=== PATIENT | female | born 1975 | race Caucasian/White ===

== ENCOUNTER 2020-06-22 16:01 | Outpatient (CLI) | payer OTHER, SELFPAY ==
--- NOTE | ~2020-06-22 | US_ITS ---
EXAMINATION: US soft tissue head and neck DATE: 06/22/2020 16:38 INDICATION: Mass inferior to the right mastoid process. TECHNIQUE: Multiple grayscale and Doppler ultrasound images of the right face at the region of concer n inferior to the right mastoid were obtained. COMPARISON: 12/04/2012 FINDINGS: Within the deep aspect of the right parotid gland near the site of the previously biopsied nodule is a larger 2.0 x 1.7 x 1.5 cm anechoic cystic lesion with smooth well-defined margins and posterior aco ustic enhancement. No evident solid soft tissue component or internal vascularity on color Doppler. V ascular flow is seen within a smaller hypoechoic solid nodule measuring 7 x 6 x 7 mm located in the m ore superficial left mastoid possibly representing a reactive lymph node although neoplasm cannot be excluded. IMPRESSION: 1. 2.0 cm simple appearing cystic lesion in the right parotid gland without evident vascular solid so ft tissue component suggesting either cephalocele or abscess in the appropriate clinical setting. 2. . Smaller and more superficial 7 mm solid right parotid nodule with vascular flow on color Doppler which could represent a reactive lymph node versus primary parotid neoplasm which could be either be nign or malignant. Correlate clinically and could consider either further evaluation with neck CT wit h contrast or ultrasound guided biopsy as clinically indicated. Reviewed, dictated and finalized at location H. OGIST IMPRESSION: 1. 2.0 cm simple appearing cystic lesion in the right parotid gland without verona dent vascular solid soft tissue component suggesting either cephalocele or absc ess in the appropriate clinical setting. 2. . Smaller and more superficial 7 mm solid right parotid nodule with vascular flow on color Doppler which could represent a reactive lymph node versus prima ry parotid neoplasm which could be either benign or malignant. Correlate clinic ally and could consider either further evaluation with neck CT with contrast or ultrasound guided biopsy as clinically indicated.
== END 2020-06-22 16:02 | disposition home or self-care (01) ==
PROVIDERS: PCP Internal Medicine; Visit Provider Internal Medicine
DX: R93.0 Abnormal findings on diagnostic imaging of skull and head, not elsewhere classified (principal)
CPT/HCPCS: 76536

== ENCOUNTER 2020-07-09 08:34 | Outpatient (CLI) | payer OTHER, SELFPAY ==
--- NOTE | ~2020-07-09 | CT_ITS ---
EXAMINATION: CT soft tissue neck w con DATE: 07/09/2020 09:39 INDICATION: Other diseases of salivary glands. Right parotid mass. TECHNIQUE: Computed tomography (CT) of the neck was performed with 75 mL Omnipaque-350 intravenous co ntrast. Automated exposure control and iterative reconstruction technique were employed. The dose-saravanan gth product was 569.63 mGy-cm. COMPARISON: Ultrasound 06/22/2020, 12/06/12 FINDINGS: There is a 1.9 x 1.4 cm mass in superficial right parotid gland. On 12/06/12, ultrasound-guid ed biopsy of a 1.4 cm mass in right parotid gland was nondiagnostic. There is a 1.3 x 1.1 cm mass in superficial left parotid gland. There is plaque in proximal left internal carotid artery with less t edmond 50% stenosis relative to normal distal artery lumen diameter. There are calcifications in the pal atine tonsils. There are no pathologically enlarged lymph nodes. There is mild cervical spondylosis. IMPRESSION: 1. Bilateral parotid masses with increase in size of the right parotid mass from 12/06/12. The differen tial diagnosis includes benign mixed tumor, Warthin tumor, and less likely primary malignancy or nae l metastatic disease. Consider ultrasound-guided fine-needle aspiration. Reviewed, dictated and finalized at location B. RNATIONAL RECRUITER IMPRESSION: 1. Bilateral parotid masses with increase in size of the right parotid mass fro m 12/06/12. The differential diagnosis includes benign mixed tumor, Warthin tumor , and less likely primary malignancy or daniel metastatic disease. Consider ultr asound-guided fine-needle aspiration.
[2020-07-09 09:32] LABS: Estimated Glomerular Filt Rate > 60
== END 2020-07-09 08:35 | disposition home or self-care (01) ==
PROVIDERS: PCP Internal Medicine; Visit Provider Otolaryngology
DX: H60.93 Unspecified otitis externa, bilateral (principal); K11.20 Sialoadenitis, unspecified; K11.8 Other diseases of salivary glands
CPT/HCPCS: 70491; Q9967

== ENCOUNTER 2020-07-21 13:31 | Outpatient (CLI) | payer OTHER, SELFPAY ==
--- NOTE | ~2020-07-21 | US_ITS ---
EXAMINATION: 1. US FNA additional 2. US FNA w image guidance DATE: 07/21/2020 14:39 INDICATION: Bilateral parotid masses. TECHNIQUE: The procedure and its benefits, risks, and benefits were discussed with the patient. Risks specifical ly discussed included bleeding, infection, nerve damage. The patient verbalized understanding of the risks and agreed to proceed. The face was prepped and draped in the usual sterile manner. 1% lidocai ne was used for local anesthesia. Five passes were made with a 25G needle into the in left parotid g land lesion. Appropriate needle location was documented with continuous sonographic guidance. Five passes were made with a 25G needle into the in right parotid gland lesion. Appropriate needle l ocation was documented with continuous sonographic guidance. There were no immediate complications. FINDINGS: Grayscale ultrasound images demonstrate needles advanced into a 12 x 9 mm hypoechoic mass in the supe rficial left parotid gland for biopsy. Grayscale images demonstrate needles advanced into a 1.9 x 1.5 x 1.5 cm mixed cystic and solid mass in superficial right parotid gland IMPRESSION: 1. Ultrasound-guided fine needle aspiration of a mass in superficial left parotid gland. 2. Ultrasound-guided fine-needle aspiration of a mass in superficial right parotid gland. Reviewed, dictated and finalized at location A. DIFIER MAINTENANCE WORKER IMPRESSION: 1. Ultrasound-guided fine needle aspiration of a mass in superficial left paro tid gland. 2. Ultrasound-guided fine-needle aspiration of a mass in superficial right paro tid gland.
== END 2020-07-21 13:32 | disposition home or self-care (01) ==
PROVIDERS: PCP Internal Medicine; Visit Provider Otolaryngology
DX: K11.8 Other diseases of salivary glands (principal)
CPT/HCPCS: 10005; 10006; 88173; 88305

== ENCOUNTER 2020-08-18 02:01 | Outpatient (CLI) | payer OTHER, SELFPAY ==
[2020-08-18 18:37] LABS: SARS-CoV-2 RNA PCR Negative
== END 2020-08-18 02:02 | disposition home or self-care (01) ==
LOC: ANHCOVIDDT 02:01
PROVIDERS: PCP Internal Medicine; Visit Provider Otolaryngology
DX: Z01.812 Encounter for preprocedural laboratory examination (principal); Z20.822 Contact with and (suspected) exposure to COVID-19
CPT/HCPCS: 93005; C9803; U0003; U0005

== ENCOUNTER 2020-08-18 13:22 | Outpatient (CLI) | payer OTHER, SELFPAY ==
--- NOTE | 2020-08-18 13:26 | ECG_ITS ---
Measurements Intervals [place] Rate: 79 P: 42 AR: 130 QRS: 31 QRSD: 104 T: 65 QT: 343 QTc: 395 Interpretive Statements SINUS RHYTHM DELAYED PRECORDIAL R/S TRANSITION BORDERLINE ECG Electronically Signed On 08-18-2020 13:56:10 THUMB SEWER by Dontrell Sanchez D.O.
== END 2020-08-18 13:23 | disposition home or self-care (01) ==
LOC: ANHSURGERY 13:26
PROVIDERS: PCP Internal Medicine; Visit Provider Otolaryngology
DX: Z01.818 Encounter for other preprocedural examination (principal); I10 Essential (primary) hypertension; R94.31 Abnormal electrocardiogram [ECG] [EKG]
CPT/HCPCS: 93005

== ENCOUNTER 2020-08-21 00:51 | Day surgery (SDC) | payer OTHER, SELFPAY ==
[2020-08-17 09:59] VITALS: BMI 51.7
--- NOTE | 2020-08-19 13:25 | PM.IMHP ---
H&P: HPI History of Present Illness Date/Time: 08/19/20 13:25 Chief Complaint: Right parotid lesion Narrative: Rachel Lane is a 45 year old female Who presents for planned surgical procedure. She reports no new changes in symptoms or medical history. Review of Systems Constitutional: Constitutional: Denies fatigue, Denies fever(s) and Denies lethargy Eyes: Eyes: Denies blurry vision and Denies change in vision ENT: Reports as per HPI Cardiovascular: Cardiovascular: Denies chest pain Respiratory: Respiratory: Denies cough Endocrine: Endocrine: Denies fatigue Hematologic/Lymphatic: Hematologic/Lymphatic: Denies easy bleeding, Denies easy bruising and Denies lymphadenopathy Allergic/Immunologic: Allergic/Immunologic: Denies seasonal rhinorrhea [facility] Past Medical History Medical History Anxiety Arthritis Depression Headache, migraine Hypertension IBS (irritable bowel syndrome) Obesity, morbid, BMI 40.0-49.9 Postprandial diarrhea Thyroid disorder Tobacco consumption Surgical History Surgical History H/O LEEP H/O: hysterectomy Family History Family History Mother Diabetes mellitus Hypertension COPD (chronic obstructive pulmonary disease) Arthritis Hypothyroidism (acquired) Father Diabetes mellitus Hypertension Grandparent Arthritis COPD (chronic obstructive pulmonary disease) Diabetes mellitus Hypertension Hypothyroidism (acquired) Kidney failure Sibling Heart valve replaced Social History Social History Smoking packs per day: 1 Smoking cigarettes per day: 20.0 Years smoked: 30 Smoking pack-years: 30.00 Smoking status: Current every day smoker Tobacco type: cigarettes Alcohol intake: never Substance use: current Substance use type: marijuana Last use: MARIJUANA GUMMIES TID Spiritual care concerns: No Meds Home Medications and Allergies Home Medications Medication Instructions Recorded Confirmed Type ibuprofen 800 mg tablet 800 mg PO TID 01/13/20 08/17/20 History omeprazole 20 mg capsule,delayed 40 mg PO QPM 01/13/20 08/17/20 History release levothyroxine 100 mcg tablet 100 mcg PO DAILY #90 tablet 07/07/20 08/17/20 Rx cyclobenzaprine 10 mg tablet 10 mg PO TID PRN #30 tablet 07/08/20 08/17/20 Rx methylprednisolone 4 mg tablets in See Rx Instructions PO PER PKG DIR 07/30/20 08/17/20 Rx a dose pack #21 ea atorvastatin 20 mg PO HS 08/17/20 08/17/20 History clindamycin HCl 300 mg capsule 300 mg PO Q8H #12 cap 08/17/20 08/17/20 Rx lisinopril 20 mg PO HS 08/17/20 08/17/20 History olvactbd-kxs-adt C-herb no.124 1 tablet PO QAM 08/17/20 08/17/20 History [Airborne Gummy] nystatin 100,000 unit/mL oral 4 ml PO Q6H #60 ml 08/17/20 08/17/20 Rx suspension Allergies Allergy/AdvReac Type Severity Reaction Status Date / Time egg Allergy Unknown Gastrointestinal Verified 08/17/20 09:30 Upset PENCILLIN Allergy Unknown Anaphylaxis Uncoded 08/17/20 09:29 Exam Const: General: cooperative, healthy appearing, comfortable, well developed and alert HENMT: Head: normal to inspection, normocephalic and atraumatic Ears: hearing grossly normal bilaterally, external ears normal, TM's normal bilaterally and EAC's normal General nose exam: Normal external nose present, Normal nares present, No nasal polyps present, Normal nasal mucous membranes and turbinates present and Normal septum present Face and sinus: normal facial exam Mouth: Yes Normal oral and palatal mucosa present, Yes lip normal, Yes tongue normal, Yes oropharynx normal and Yes moist mucous membranes Teeth and gingiva: dentition normal and gingiva normal Throat: posterior oropharynx normal, tonsils normal and uvula midline Eyes: General: appearance normal, both eyes and all related structures Periorbital: periorbital findi
--- NOTE | 2020-08-20 15:12 | WPDANESEPPF ---
Anes - Initial Pre Proc Eval Procedure: Operation Date: 08/21/20 09:00 Proposed Procedures p Right Parotidectomy with Facial Nerve Dissection - Tomás Manuel MD Date/Time: 08/20/20 15:12 Surgeon: Tomás Manuel MD Pre Op Diagnosis: sialidonitis Patient Data Age: 45 Gender: F Height: 1.54 m Weight: 122.05 kg Allergies Allergy/AdvReac Type Severity Reaction Status Date / Time Penicillins Allergy Severe Anaphylaxis Verified 08/21/20 07:49 egg Allergy Unknown Gastrointestinal Verified 08/17/20 09:30 Upset PENCILLIN Allergy Unknown Anaphylaxis Uncoded 08/17/20 09:29 Home Medications Medication Instructions Recorded Confirmed Type ibuprofen 800 mg tablet 800 mg PO TID 01/13/20 08/17/20 History omeprazole 20 mg capsule,delayed 40 mg PO QPM 01/13/20 08/17/20 History release levothyroxine 100 mcg tablet 100 mcg PO DAILY #90 tablet 07/07/20 08/17/20 Rx cyclobenzaprine 10 mg tablet 10 mg PO TID PRN #30 tablet 07/08/20 08/17/20 Rx methylprednisolone 4 mg tablets in See Rx Instructions PO PER PKG DIR 07/30/20 08/17/20 Rx a dose pack #21 ea atorvastatin 20 mg PO HS 08/17/20 08/17/20 History clindamycin HCl 300 mg capsule 300 mg PO Q8H #12 cap 08/17/20 08/17/20 Rx lisinopril 20 mg PO HS 08/17/20 08/17/20 History aeefjjat-edc-crz C-herb no.124 1 tablet PO QAM 08/17/20 08/17/20 History [Airborne Gummy] nystatin 100,000 unit/mL oral 4 ml PO Q6H #60 ml 08/17/20 08/17/20 Rx suspension Patient hx anesthesia problems: none Family hx anesthesia problems: none PMFSH Past Medical History Medical History Anxiety Arthritis Depression Headache, migraine Hypertension IBS (irritable bowel syndrome) Obesity, morbid, BMI 40.0-49.9 Postprandial diarrhea Thyroid disorder Tobacco consumption Surgical History Surgical History H/O LEEP H/O: hysterectomy Family History Family History Mother Diabetes mellitus Hypertension COPD (chronic obstructive pulmonary disease) Arthritis Hypothyroidism (acquired) Father Diabetes mellitus Hypertension Grandparent Arthritis COPD (chronic obstructive pulmonary disease) Diabetes mellitus Hypertension Hypothyroidism (acquired) Kidney failure Sibling Heart valve replaced Social History Social History Smoking packs per day: 1 Smoking cigarettes per day: 20.0 Years smoked: 30 Smoking pack-years: 30.00 Smoking status: Current every day smoker Tobacco type: cigarettes Alcohol intake: never Substance use: current Substance use type: marijuana Last use: MARIJUANA GUMMIES TID Living arrangements: with family Spiritual care concerns: No Anes - Eval Final PreProcedure Day of Procedure 08/20/20 15:12 Patient weight: morbidly obese Heart: regular rate and rhythm Lungs: clear to auscultation and normal air movement Airway: Mallampati scale class II Neurological: alert and oriented Last oral intake: >/= 8 hours ASA classification: III Emergent: no Anesthetic plan: proceed Anesthesia type and monitoring: general ETT Informed Consent: The patient's anesthetic plan and its attendant risks and benefits were discussed with the patient/family/POA. Questions were solicited and answers provided to the satisfaction of the patient/family/POA.
[2020-08-21] VITALS (12 sets, daily range): BP systolic 110–162; BP diastolic 67–88; PULSE 62–107; RESP 12–20; TEMP 36.1–36.7; O2SAT 92–100
--- NOTE | 2020-08-21 06:57 | WPDHPUPDATE1 ---
History and Physical Update Update Date/Time: 08/21/20 06:57 History and Physical has been reviewed, including an updated exam of the patient. There are NO changes in the patient's condition. Risks, benefits, and alternatives have been discussed and questions answered. Patient agrees to proceed with procedure.
[2020-08-21] MEDS: ACETAMINOPHEN 500 MG TABLET 1000 MG PO (08:30)
[2020-08-21] MEDS: LACTATED RINGERS 1,000 ML 30 ML IV CONT ×2 (08:35→11:33)
--- NOTE | 2020-08-21 08:47 | SUR.PREOP ---
0840-PT STATES SHE HAS FEVER BLISTER ON UPPER LIP-[address] CRNA AWARE AND WILL INFORM DR. CALABRESE.
[2020-08-21] MEDS: CLINDAMYCIN 900 MG/D5W 50 ML 900 MG/50 ML PIGGYBACK 50 MG IVPB (09:53)
[2020-08-21] MEDS: LIDO 1%/EPINEPHRINE 1:100,000 50 ML VIAL INFILTRATE (10:13)
--- NOTE | 2020-08-21 10:41 | SUR.OPER ---
Frozen section sent with liv Cavazos and received in pathology by Bharti
--- NOTE | 2020-08-21 11:43 | SUR.PHASEI ---
1143 - dr. stallings at bedside assessing pt's neuro status
[2020-08-21] MEDS: ONDANSETRON INJ 4 MG/2 ML VIAL IV PUSH (11:55)
--- NOTE | 2020-08-21 12:01 | SUR.PHASEI ---
1208 - dr. Manuel at bedside assessing pt
[2020-08-21] MEDS: fentaNYL CITRATE INJ (*CRX) 100 MCG/2 ML VIAL 25 MCG IV PUSH (12:22)
[2020-08-21] MEDS: diphenhydrAMINE HCl INJ 50 MG/ML VIAL 12.5 MG IV PUSH (13:08)
[2020-08-21] MEDS: oxyCODONE HCL (*CRX) 5 MG TAB IR PO (13:25)
--- NOTE | 2020-08-21 13:35 | PM.PROC ---
Procedure Note - Detailed Date of procedure: 08/21/20 Pre-op diagnosis: sialidonitis Right parotid tumor Procedure performed: Right parotidectomy with facial nerve monitor Description of procedure: The patient was correctly identified and consent was verified in the preoperative holding area. The patient was then brought to the operating room a time-out was performed. General anesthesia was induced and endotracheal tube was secured the patient's airway and taped to the left lower lip. Facial nerve monitoring was then set up and confirmed. The patient was prepped and draped for the aforementioned procedure. 3 cc of 1% lidocaine with 1 100,000 parts epinephrine was injected deep to a modified Herman incision which was pre drawn. Scalp was utilized to dissect through the epidermis and dermis. Blunt dissection as well as Bovie electrocautery was utilized to dissect just above the periparotid fascia. When the location of the tumor was identified dissection was carried out with bipolar electrocautery as well as blunt dissection around the tumor. Some tumor spillage was noted but the capsule was removed almost in its entirety. Hemostasis was noted to be excellent. The periparotid fascia was reapproximated anterior and posteriorly. A 10 Malay fluted drain was placed to bulb suction. The wound was closed in its deep layer with 3 0 Vicryl and superficial layer with 4 0 nylon. By superficially ringing skin. I performed all dictated portion of the procedure. Care the patient was turned over to Anesthesiology. Upon wake-up the patient's face full fully moved. Anesthesia: GLMA Surgeon: Tomás Manuel MD Complications: No immediate complications Condition: stable Disposition: PACU
== END 2020-08-21 14:49 | disposition home or self-care (01) ==
PROVIDERS: PCP Internal Medicine; Visit Provider Otolaryngology
PROC: (CPT 42410; principal; 2020-08-21 09:00)
DX: K11.20 Sialoadenitis, unspecified (principal); I10 Essential (primary) hypertension; K58.9 Irritable bowel syndrome, unspecified; F41.8 Other specified anxiety disorders; E66.01 Morbid (severe) obesity due to excess calories; Z68.43 Body mass index [BMI] 50.0-59.9, adult; E07.9 Disorder of thyroid, unspecified; F17.210 Nicotine dependence, cigarettes, uncomplicated; F12.90 Cannabis use, unspecified, uncomplicated
CPT/HCPCS: 42410; 88305; 88307; A9270; J0330; J1100; J1170; J1200; J2250; J2370; J2405; J2704; J3010; J7120

== ENCOUNTER → 2020-10-06 02:12 | Outpatient (CLI) | payer OTHER, SELFPAY ==
[2020-10-06 22:46] LABS: SARS-CoV-2 RNA PCR Negative
== END ==
PROVIDERS: PCP Internal Medicine; Visit Provider Otolaryngology
DX: Z01.812 Encounter for preprocedural laboratory examination (principal); Z20.822 Contact with and (suspected) exposure to COVID-19
CPT/HCPCS: C9803; U0003; U0005

== ENCOUNTER 2020-10-09 01:24 | Day surgery (SDC) | payer OTHER, SELFPAY ==
[2020-10-01 14:33] VITALS: BMI 54.3
--- NOTE | 2020-10-06 10:23 | PM.IMHP ---
H&P: HPI History of Present Illness Date/Time: 10/06/20 10:23 Chief Complaint: Left parotid mass, Left parotid tumor Narrative: Rachel Lane is a 45 year old female With history of bilateral parotid masses status post right-sided superficial parotidectomy for removal of abscess/cyst. She presents for left-sided parotidectomy. Reports no new symptoms or changes in her medical history. Review of Systems Constitutional: Constitutional: Denies fatigue, Denies fever(s) and Denies lethargy Eyes: Eyes: Denies blurry vision and Denies change in vision ENT: Reports as per HPI Cardiovascular: Cardiovascular: Denies chest pain Respiratory: Respiratory: Denies cough Endocrine: Endocrine: Denies fatigue Hematologic/Lymphatic: Hematologic/Lymphatic: Denies easy bleeding, Denies easy bruising and Denies lymphadenopathy Allergic/Immunologic: Allergic/Immunologic: Denies seasonal rhinorrhea PMF Past Medical History Medical History Anxiety Arthritis Depression Headache, migraine Hypertension IBS (irritable bowel syndrome) Obesity, morbid, BMI 40.0-49.9 Postprandial diarrhea Thyroid disorder Tobacco consumption Surgical History Surgical History H/O LEEP H/O: hysterectomy Family History Family History Mother Diabetes mellitus Hypertension COPD (chronic obstructive pulmonary disease) Arthritis Hypothyroidism (acquired) Father Diabetes mellitus Hypertension Grandparent Arthritis COPD (chronic obstructive pulmonary disease) Diabetes mellitus Hypertension Hypothyroidism (acquired) Kidney failure Sibling Heart valve replaced Social History Social History Smoking packs per day: 0.5 Smoking cigarettes per day: 10.0 Years smoked: 30 Smoking pack-years: 15.00 Smoking status: Current every day smoker Tobacco type: cigarettes Alcohol intake: never Substance use: current Substance use type: marijuana Last use: MARIJUANA GUMMIES TID Spiritual care concerns: No Meds Home Medications and Allergies Home Medications Medication Instructions Recorded Confirmed Type omeprazole 20 mg capsule,delayed 40 mg PO QPM 01/13/20 10/01/20 History release levothyroxine 100 mcg tablet 100 mcg PO DAILY #90 tablet 07/07/20 10/01/20 Rx atorvastatin 20 mg PO HS 08/17/20 10/01/20 History lisinopril 20 mg PO HS 08/17/20 10/01/20 History vagtpoez-pyf-dfs C-herb no.124 1 tablet PO QAM 08/17/20 10/01/20 History [Airborne Gummy] ibuprofen 800 mg tablet 800 mg PO BID #60 tablet 08/31/20 10/01/20 Rx Allergies Allergy/AdvReac Type Severity Reaction Status Date / Time Penicillins Allergy Severe Anaphylaxis Verified 08/27/20 10:32 egg AdvReac Intermediate DIARRHEA/VO Verified 08/27/20 10:32 MITING Exam Const: General: cooperative, healthy appearing, comfortable, well developed and alert HENMT: Head: normal to inspection, normocephalic and atraumatic Ears: hearing grossly normal bilaterally, external ears normal, TM's normal bilaterally and EAC's normal General nose exam: Normal external nose present, Normal nares present, No nasal polyps present, Normal nasal mucous membranes and turbinates present and Normal septum present Face and sinus: abnormal facial exam and other ( Left-sided parotid mass) Mouth: Yes Normal oral and palatal mucosa present, Yes lip normal, Yes tongue normal, Yes oropharynx normal and Yes moist mucous membranes Teeth and gingiva: dentition normal and gingiva normal Throat: posterior oropharynx normal, tonsils normal and uvula midline Eyes: General: appearance normal, both eyes and all related structures Periorbital: periorbital findings normal Eyelids: eyelids normal Conjunctivae: conjunctivae normal Sclera: sclerae normal Neck: Neck: normal visual inspection, full ROM and no lymphadenopathy
[2020-10-09] VITALS (8 sets, daily range): BP systolic 130–144; BP diastolic 69–94; PULSE 50–89; RESP 15–18; TEMP 36.2–36.6; O2SAT 95–100
--- NOTE | 2020-10-09 07:00 | WPDHPUPDATE1 ---
History and Physical Update Update Date/Time: 10/09/20 07:00 History and Physical has been reviewed, including an updated exam of the patient. There are NO changes in the patient's condition. Risks, benefits, and alternatives have been discussed and questions answered. Patient agrees to proceed with procedure.
[2020-10-09] MEDS: LACTATED RINGERS 1,000 ML 30 ML IV CONT ×2 (08:00→11:22)
--- NOTE | 2020-10-09 08:01 | WPDANESEPPF ---
Anes - Initial Pre Proc Eval Procedure: Operation Date: 10/09/20 09:30 Proposed Procedures p Left Parotidectomy With Facial Nerve Monitor - Tomás Manuel MD Date/Time: 10/09/20 08:01 Surgeon: Tomás Manuel MD Pre Op Diagnosis: Left Parotid Mass Patient Data Age: 45 Gender: F Height: 5 ft Weight: 123.1 kg Last Vital Signs Temp 36.2 C L 10/09/20 07:46 Pulse 89 10/09/20 07:46 Resp 18 10/09/20 07:46 BP 141/94 H 10/09/20 07:46 Pulse Ox 100 10/09/20 07:46 Allergies Allergy/AdvReac Type Severity Reaction Status Date / Time Penicillins Allergy Severe Anaphylaxis Verified 10/09/20 07:44 egg AdvReac Intermediate DIARRHEA/VO Verified 10/09/20 07:44 MITING Home Medications Medication Instructions Recorded Confirmed Type omeprazole 20 mg capsule,delayed 40 mg PO QPM 01/13/20 10/09/20 History release levothyroxine 100 mcg tablet 100 mcg PO DAILY #90 tablet 07/07/20 10/09/20 Rx atorvastatin 20 mg PO HS 08/17/20 10/09/20 History lisinopril 20 mg PO HS 08/17/20 10/09/20 History ryugrzkl-owi-lso C-herb no.124 1 tablet PO QAM 08/17/20 10/09/20 History [Airborne Gummy] ibuprofen 800 mg tablet 800 mg PO BID #60 tablet 08/31/20 10/09/20 Rx Patient hx anesthesia problems: none Family hx anesthesia problems: none PMFSH Past Medical History Medical History Anxiety Arthritis Depression Headache, migraine Hypertension IBS (irritable bowel syndrome) Obesity, morbid, BMI 40.0-49.9 Postprandial diarrhea Thyroid disorder Tobacco consumption Surgical History Surgical History H/O LEEP H/O: hysterectomy Family History Family History Mother Diabetes mellitus Hypertension COPD (chronic obstructive pulmonary disease) Arthritis Hypothyroidism (acquired) Father Diabetes mellitus Hypertension Grandparent Arthritis COPD (chronic obstructive pulmonary disease) Diabetes mellitus Hypertension Hypothyroidism (acquired) Kidney failure Sibling Heart valve replaced Social History Social History Smoking packs per day: 0.5 Smoking cigarettes per day: 10.0 Years smoked: 30 Smoking pack-years: 15.00 Smoking status: Current every day smoker Tobacco type: cigarettes Alcohol intake: never Substance use: current Substance use type: marijuana Last use: MARIJUANA GUMMIES TID Living arrangements: alone Spiritual care concerns: No Anes - Eval Final PreProcedure Day of Procedure 10/09/20 08:01 Patient weight: super morbidly obese Heart: regular rate and rhythm Lungs: decreased breath sounds Airway: Mallampati scale class III Neurological: alert and oriented Last oral intake: >/= 8 hours ASA classification: III Anesthetic plan: proceed Anesthesia type and monitoring: general ETT and standard monitoring Informed Consent: The patient's anesthetic plan and its attendant risks and benefits were discussed with the patient/family/POA. Questions were solicited and answers provided to the satisfaction of the patient/family/POA.
[2020-10-09] MEDS: ACETAMINOPHEN 500 MG TABLET 1000 MG PO (08:04)
[2020-10-09] MEDS: ceFAZolin SODIUM 1 GM VIAL 3 GM IV PUSH (09:15)
[2020-10-09] MEDS: LIDO 1%/EPINEPHRINE 1:100,000 50 ML VIAL INFILTRATE (09:34)
[2020-10-09] MEDS: BACITRACIN OINTMENT 15 GM TUBE 1 APPLIC TOPICAL (10:00)
[2020-10-09] MEDS: ONDANSETRON INJ 4 MG/2 ML VIAL IV PUSH (10:34)
--- NOTE | 2020-10-09 10:48 | P.OP_ITS ---
Procedure Note - Detailed Date of procedure: 10/09/20 Pre-op diagnosis: Left Parotid Mass Post-op diagnosis: same Procedure performed: Left parotidectomy with facial nerve monitor Description of procedure: The patient was correctly identified and consent was verified in the preoperative holding area. The patient was then brought to the operating room and a time-out was performed. General anesthesia was induced and endotracheal tube was secured the patient's airway and taped to the right lower lip. The bed was then rotated. The patient was prepped and draped for the aforementioned procedure. 1 cc of 1% lidocaine with with 1 100,000 parts epinephrine was injected below the pre drawn surgical incision. Of note facial nerve monitoring was initiated prior to this. A 15 blade was utilized to dissect down to the subcutaneous fat. Blunt dissection was then carried carried in the pre parotid over the pre parotid fascia until the tumor was palpable. The tumor was then bluntly dissected around and hemostasis was utilized using fi ne bipolar at a setting of 5. The tumor was removed in its entirety with no spillage. Hemostasis was excellent. The pre parotid fascia was closed. The deep layer was closed with 3 0 interrupted Vicryl. The skin was then closed with a 5 0 running nylon suture. Antibiotic was applied. Compression dressing was placed. Care the patient was turned over to Anesthesiology. I performed all dictated portions. Anesthesia: GETA Surgeon: Tomás Manuel MD Estimated blood loss (mL): 5 Complications: No immediate complications Condition: stable Disposition: PACU Findings: 1 cm tumor removed from the left tail/superficial parotid lobe.
[2020-10-09] MEDS: fentaNYL CITRATE INJ (*CRX) 100 MCG/2 ML VIAL 25 MCG IV PUSH ×2 (11:11→11:25)
[2020-10-09] MEDS: HALOPERIDOL LACTATE 5 MG/ML VIAL 1 MG IV PUSH (11:20)
--- NOTE | 2020-10-09 14:31 | SUR.PHASEII ---
DR. CALABRESE CALLED RE: DISCHARGE PAIN MED. WILL CALL IN HOME PAIN MED. PT AWARE.
== END 2020-10-09 12:45 | disposition home or self-care (01) ==
PROVIDERS: PCP Internal Medicine; Visit Provider Otolaryngology
PROC: (CPT 42410; principal; 2020-10-09 09:30)
DX: D11.0 Benign neoplasm of parotid gland (principal); I10 Essential (primary) hypertension; E07.9 Disorder of thyroid, unspecified; K58.9 Irritable bowel syndrome, unspecified; F41.8 Other specified anxiety disorders; E66.01 Morbid (severe) obesity due to excess calories; Z68.43 Body mass index [BMI] 50.0-59.9, adult; F17.210 Nicotine dependence, cigarettes, uncomplicated; F12.90 Cannabis use, unspecified, uncomplicated
CPT/HCPCS: 42410; 88305; 88307; A9270; J0330; J0690; J1630; J2250; J2405; J2704; J3010; J7120

== ENCOUNTER 2020-11-16 11:24 | Outpatient (CLI) | payer OTHER, SELFPAY ==
--- NOTE | ~2020-11-16 | MMUS_ITS ---
EXAMINATION: MM diagnostic brian BI w quirino, US breast BI limited HISTORY: Six-month follow-up for probably benign bilateral breast masses TECHNIQUE: Craniocaudal, mediolateral, and mediolateral oblique 3-D tomosynthesis images of the alex ts were performed and synthetic 2-D images were generated. CAD analysis was submitted and interpreted . High resolution limited bilateral breast ultrasound was performed. COMPARISON: 05/07/2020, 07/21/2020 BREAST PARENCHYMAL COMPOSITION: The breasts are almost entirely fatty. FINDINGS: MAMMOGRAPHIC FINDINGS: Right breast: There is stable 12 mm oval, circumscribed, equal density mass in the middle third of th e upper inner breast at the 1:00 location 8 cm from the nipple. No suspicious calcification is identi fied. Left breast: There is stable focal asymmetry in the subareolar aspect of the breast without discrete mass identified. ULTRASOUND: Right breast: There is a stable 10 mm x 5 mm oval, hypoechoic, parallel mass with indistinct margins at the 12:30 location 2 cm from the nipple. No definite posterior features or internal vascularity ar e identified. Left breast: There is a stable 6 mm x 3 mm oval, circumscribed, parallel, hypoechoic mass with no pos terior features or internal vascularity at the 12:00 location in the subareolar aspect of the breast. A 2 mm round mass with similar sonographic features is seen at the 3:00 location 4 cm from the nippl e. IMPRESSION: 1. Indeterminate right breast mass. Ultrasound guided right breast biopsy is recommended. 2. Probably benign left breast masses. Six month follow-up left diagnostic mammogram and ultrasound a re recommended. BI-RADS category 4, suspicious findings. Reviewed, dictated and finalized at location A. IMPRESSION: 1. Indeterminate right breast mass. Ultrasound guided right breast biopsy is re commended. 2. Probably benign left breast masses. Six month follow-up left diagnostic mamm ogram and ultrasound are recommended. BI-RADS category 4, suspicious findings.
== END 2020-11-16 11:25 | disposition home or self-care (01) ==
LOC: ANHIMG 11:27
PROVIDERS: PCP Internal Medicine; Visit Provider Clinical Nurse Specialist
DX: R92.8 Other abnormal and inconclusive findings on diagnostic imaging of breast (principal)
CPT/HCPCS: 76642; 77062; 77066; G0279

== ENCOUNTER 2021-04-16 11:43 | Outpatient (CLI) | payer OTHER, SELFPAY ==
[2021-04-16 12:06] LABS: Basophils Absolute Auto 0.1 K/mm3 (0.0-0.1); Basophils Percent Auto 0.8 % (0.2-1.2); Eosinophils Absolute Auto 0.4 K/mm3 (0-0.3); Hematocrit 46.5 % (37.0-47.0); Hemoglobin 14.8 g/dL (12.0-15.0); Immature Granulocyte Absolute 0.03 K/mm3 (0.00-0.031); Immature Granulocyte Percent A 0.3 % (0-0.5); Lymphocytes Absolute Auto 5.51 K/mm3 (0.9-3.2); Lymphocytes Percent Auto 46.5 % (18.3-44.2); Mean Corpuscular HGB Conc 31.8 g/dl (32-36); Mean Corpuscular Volume 97.3 fl (80-100); Mean Platelet Volume 10.5 fl (7.4-10.4); Monocytes Absolute Auto 0.8 K/mm3 (0.1-0.6); Monocytes Percent Auto 6.9 % (2.6-8.5); Neutrophils Percent Auto 42.5 % (45.5-73.1); Platelet Count Result 277 k/mm3 (150-375); Red Blood Count 4.78 M/mm3 (4.2-5.4); Red Cell Distribution Width 13.9 % (11.5-14.5); White Blood Count 11.8 K/mm3 (4.5-10.0)
[2021-04-16 12:28] LABS: Alanine Aminotransferase 28 U/L (4-35); Albumin Level 4.6 g/dL (3.5-5.1); Alkaline Phosphatase 78 U/L (38-126); Anion Gap 10 mmol/L (8-16); Aspartate Amino Transferase 33 U/L (14-36); Bilirubin,Total 0.6 mg/dL (0.2-1.3); Blood Urea Nitrogen 17 mg/dL (7-17); Calcium 9.6 mg/dL (8.4-10.2); Carbon Dioxide 28 mmol/L (22-30); Chloride 103 mmol/L (98-107); Cholesterol 265 mg/dL (0-200); Estimated Glomerular Filt Rate 60; Glucose 108 mg/dL (65-110); HDL Direct 52 mg/dL; Potassium 3.9 mmol/L (3.4-5.0); Sodium 141 mmol/L (137-145); Triglycerides 326 mg/dL (<150)
[2021-04-16 12:39] LABS: LDL Cholesterol Direct 145 mg/dL
[2021-04-16 14:25] LABS: Vitamin D 25 Hydroxy 16.4 ng/mL
== END 2021-04-16 11:44 | disposition home or self-care (01) ==
PROVIDERS: PCP Internal Medicine; Visit Provider Clinical Nurse Specialist
DX: I10 Essential (primary) hypertension (principal); E03.9 Hypothyroidism, unspecified; E66.01 Morbid (severe) obesity due to excess calories; E55.9 Vitamin D deficiency, unspecified
CPT/HCPCS: 36415; 80053; 80061; 82306; 83036; 84443; 85025

== ENCOUNTER 2021-10-15 12:49 | Outpatient (CLI) | payer OTHER, SELFPAY ==
[2021-10-15 13:21] LABS: Basophils Absolute Auto 0.1 K/mm3 (0.0-0.1); Basophils Percent Auto 0.8 % (0.2-1.2); Eosinophils Absolute Auto 0.3 K/mm3 (0-0.3); Hematocrit 46.4 % (37.0-47.0); Hemoglobin 14.9 g/dL (12.0-15.0); Immature Granulocyte Absolute 0.03 K/mm3 (0.00-0.031); Immature Granulocyte Percent A 0.3 % (0-0.5); Lymphocytes Absolute Auto 4.53 K/mm3 (0.9-3.2); Lymphocytes Percent Auto 45.7 % (18.3-44.2); Mean Corpuscular HGB Conc 32.1 g/dl (32-36); Mean Corpuscular Hemoglobin 30.2 pg (26-34); Mean Corpuscular Volume 93.9 fl (80-100); Mean Platelet Volume 10.9 fl (7.4-10.4); Monocytes Absolute Auto 0.6 K/mm3 (0.1-0.6); Monocytes Percent Auto 6.5 % (2.6-8.5); Neutrophils Absolute Auto 4.3 K/mm3 (1.3-6.7); Neutrophils Percent Auto 43.7 % (45.5-73.1); Platelet Count Result 269 k/mm3 (150-375); Red Blood Count 4.94 M/mm3 (4.2-5.4); White Blood Count 9.9 K/mm3 (4.5-10.0)
[2021-10-15 13:31] LABS: Cholesterol 196 mg/dL (0-200); HDL Direct 41 mg/dL; Triglycerides 196 mg/dL (<150)
[2021-10-15 13:37] LABS: Rheumatoid Factor < 8.6 IU/ML (<12)
[2021-10-15 13:42] LABS: LDL Cholesterol Direct 114 mg/dL
[2021-10-15 13:48] LABS: Free T4 Free Thyroxine 0.66 ng/mL (0.78-2.19)
[2021-10-15 14:09] LABS: Erythrocyte Sedimentation Rate 13 mm/hr (0-20)
[2021-10-19 14:31] LABS: Triiodothyronine T3 Free 2.5 pg/mL (2.3-4.2)
== END 2021-10-15 12:50 | disposition home or self-care (01) ==
LOC: ANHLAB 12:53
PROVIDERS: PCP Internal Medicine; Visit Provider Clinical Nurse Specialist
DX: E03.9 Hypothyroidism, unspecified (principal); E78.5 Hyperlipidemia, unspecified; M25.50 Pain in unspecified joint; D72.829 Elevated white blood cell count, unspecified
CPT/HCPCS: 36415; 80061; 84439; 84443; 84481; 85025; 85652; 86038; 86430

== ENCOUNTER 2021-12-07 10:53 | Outpatient (CLI) | payer OTHER, SELFPAY ==
[2021-12-07 12:25] LABS: Free T4 Free Thyroxine 0.85 ng/mL (0.78-2.19)
[2021-12-10 14:04] LABS: Triiodothyronine T3 Free 2.7 pg/mL (2.3-4.2)
== END 2021-12-07 10:54 | disposition home or self-care (01) ==
LOC: ANHLAB 10:54
PROVIDERS: PCP Internal Medicine; Visit Provider Clinical Nurse Specialist
DX: E07.9 Disorder of thyroid, unspecified (principal)
CPT/HCPCS: 36415; 84439; 84443; 84481

== ENCOUNTER 2022-02-14 09:46 | Outpatient (CLI) | payer OTHER, SELFPAY | END 2022-02-14 09:47 | disposition home or self-care (01) | LOC: ANHLAB 09:47 | PROVIDERS: PCP Internal Medicine; Visit Provider Clinical Nurse Specialist | DX: E03.9 Hypothyroidism, unspecified (principal) | CPT/HCPCS: 36415; 84443 ==

== ENCOUNTER 2022-07-05 10:45 | Outpatient (CLI) | payer OTHER, SELFPAY ==
[2022-07-05 13:37] LABS: Free T4 Free Thyroxine 1.04 ng/mL (0.78-2.19)
[2022-07-08 03:50] LABS: Thyroid Peroxidase Antibodies 784 IU/mL (<9)
== END 2022-07-05 10:46 | disposition home or self-care (01) ==
LOC: ANHWCLAB 10:47
PROVIDERS: PCP Internal Medicine; Referring Provider Internal Medicine Endocrinology, Diabetes & Metabolism; Visit Provider Internal Medicine Endocrinology, Diabetes & Metabolism
DX: E03.9 Hypothyroidism, unspecified (principal)
CPT/HCPCS: 36415; 84439; 84443; 86376

== ENCOUNTER 2022-07-12 11:41 | Outpatient (CLI) | payer OTHER, SELFPAY ==
--- NOTE | ~2022-07-12 | DEXA_ITS ---
Bone Density Report Name: LATOYA LAM Age: 46 Sex: Female Ethnicity: White Date of : 1975 Indication: postmenopausal; hysterectomy; Referring Provider: KOMAL SIERRA Study: Bone densitometry was performed. Exam Date: July 12, 2022 Accession number: [id number] Bone Density: Region BMD T-score Z-score Classification AP Spine(L1-L4) 1.016 -0.3 0.2 Normal Femoral Neck (Left) 0.900 0.5 0.9 Normal Total Hip (Left) 1.051 0.9 1.2 Normal Femoral Neck (Right) 0.968 1.1 1.5 Normal Total Hip (Right) 1.154 1.7 2.1 Normal Total Hip Mean 1.103 1.3 1.7 Normal World Health Organization criteria for BMD impression classify patients as: Normal (T-score at or above -1.0), Osteopenia (T-score between -1.0 and -2.5), or Osteoporosis (T-score at or below -2.5). 10-year Fracture Risk: FRAX not reported because: All T-scores for Spine Total, Hip Total, Femoral Neck at or above -1.0 Clinical Information Provided by Patient: Smokes Has the following medical conditions: Hysterectomy Patient maximum height was 62 Menopause Age: 29 No regular weight bearing exercise Does not regularly consume dairy products Drinks caffeinated beverages Onset of menses at age 14 Number of children 1 Impression: The patient has normal bone mass. The patient has risk factors, including: smoking. Discussion: BONE DENSITY IS ABOVE THE MINIMUM DESIRABLE LEVEL AT ALL SKELETAL SITES TESTED. This patient?s bone mineral density is above the minimum desirable level (T-score -1.0 or better) at all sites measured. The patient should follow a healthful lifestyle (good nutrition with adequate calcium and vitamin D, and appropriate weight-bearing exercise). Follow-Up: Consider repeating this study in 5 years or sooner if there is some new clinical indication. Reported by: CHRISTIANO on 07/12/2022 12:10:00 PM. Reviewed, dictated and finalized at location AMari GALVAN
== END 2022-07-12 11:42 | disposition home or self-care (01) ==
PROVIDERS: PCP Internal Medicine; Visit Provider Internal Medicine
DX: M25.50 Pain in unspecified joint (principal); E03.9 Hypothyroidism, unspecified; E55.9 Vitamin D deficiency, unspecified; Z78.0 Asymptomatic menopausal state
CPT/HCPCS: 77080

== ENCOUNTER 2022-07-12 12:24 | Outpatient (CLI) | payer OTHER, SELFPAY ==
--- NOTE | ~2022-07-12 | XR_ITS ---
Bilateral Hands Technique: PA, oblique, and lateral views, and ball-catcher's view were obtained. Clinical History: Arthritis Findings: No acute fracture or dislocation is seen. Osseous alignment is anatomic. Joint spaces are p reserved. Soft tissues are unremarkable. Impression: Unremarkable bilateral hands. Reviewed, dictated and finalized at location [] S SCREEN TENDER Impression: Unremarkable bilateral hands.
== END 2022-07-12 12:25 | disposition home or self-care (01) ==
LOC: ANHIMG 12:27
PROVIDERS: PCP Internal Medicine; Visit Provider Internal Medicine
DX: M19.90 Unspecified osteoarthritis, unspecified site (principal); M25.50 Pain in unspecified joint; E03.9 Hypothyroidism, unspecified; E55.9 Vitamin D deficiency, unspecified
CPT/HCPCS: 73130; 77080

== ENCOUNTER 2022-08-15 15:21 | Outpatient (CLI) | payer OTHER, SELFPAY ==
[2022-08-15 17:33] LABS: Vitamin D 25 Hydroxy < 12.8 ng/mL
[2022-08-18 20:42] LABS: Anti Cyclic Citrullinated Pept <16 Units (<20)
[2022-08-20 12:42] LABS: Angiotensin Converting Enzyme 11.2 U/L (9-67)
== END 2022-08-15 15:22 | disposition home or self-care (01) ==
LOC: ANHLAB 15:22
PROVIDERS: PCP Internal Medicine; Visit Provider Internal Medicine
DX: E03.9 Hypothyroidism, unspecified (principal); E55.9 Vitamin D deficiency, unspecified; M19.90 Unspecified osteoarthritis, unspecified site; M25.50 Pain in unspecified joint; Z68.43 Body mass index [BMI] 50.0-59.9, adult
CPT/HCPCS: 36415; 82164; 82306; 86200

== ENCOUNTER 2022-09-13 09:04 | Outpatient (CLI) | payer OTHER, SELFPAY ==
[2022-09-13 16:13] LABS: Thyroid Stimulating Hormone 0.092 uIU/mL (0.465-4.680)
[2022-09-13 19:13] LABS: Free T4 Free Thyroxine 1.33 ng/mL (0.78-2.19)
== END 2022-09-13 09:05 | disposition home or self-care (01) ==
LOC: ANHGOSHLAB 09:05
PROVIDERS: PCP Internal Medicine; Visit Provider Internal Medicine Endocrinology, Diabetes & Metabolism
DX: E03.9 Hypothyroidism, unspecified (principal)
CPT/HCPCS: 36415; 84439; 84443

== ENCOUNTER 2022-10-05 13:54 | Outpatient (CLI) | payer OTHER, SELFPAY ==
--- NOTE | ~2022-10-05 | MMUS_ITS ---
EXAMINATION: MM diagnostic brian BI w quirino, US breast RT limited HISTORY: Overdue follow-up for probably benign breast masses TECHNIQUE: Craniocaudal, mediolateral, and mediolateral oblique 3-D tomosynthesis images of the alex ts were performed and synthetic 2-D images were generated. CAD analysis was submitted and interpreted . High resolution limited right breast ultrasound was performed. COMPARISON: 11/16/2020, 05/07/2020 BREAST PARENCHYMAL COMPOSITION: There are scattered areas of fibroglandular density. FINDINGS: MAMMOGRAPHIC FINDINGS: Left breast: There is stable focal asymmetry in the subareolar aspect of the left breast without susp icious interval change. No suspicious mass, calcification, or architectural distortion are identified . Right breast: There is a stable 12 mm oval, circumscribed, low density mass in the middle third of th e inner breast at the 2:00 location 8 cm from the nipple. Also seen is a stable round 6 mm high densi ty mass in the anterior third of inner breast 2 cm from the nipple at the 2:00 location. ULTRASOUND: There is a stable 9 mm x 5 mm oval, circumscribed, parallel, hypoechoic mass with no posterior featur es or internal vascularity at the 1:00 location 3 cm from the nipple in the right breast. There has b een no suspicious interval change. IMPRESSION: 1. No mammographic or sonographic evidence of malignancy. 2. Recommend routine screening mammography in one year. BI-RADS Category 2: Benign finding(s). Reviewed, dictated and finalized at location A. NS CUTTER IMPRESSION: 1. No mammographic or sonographic evidence of malignancy. 2. Recommend routine screening mammography in one year. BI-RADS Category 2: Benign finding(s).
== END 2022-10-05 13:55 | disposition home or self-care (01) ==
LOC: ANHIMG 13:54
PROVIDERS: PCP Internal Medicine; Visit Provider Clinical Nurse Specialist
DX: N63.10 Unspecified lump in the right breast, unspecified quadrant (principal)
CPT/HCPCS: 76642; 77062; 77066; G0279

== ENCOUNTER 2022-10-19 12:43 | Outpatient (CLI) | payer OTHER, SELFPAY ==
[2022-10-19 13:31] LABS: Cholesterol 229 mg/dL (0-200); HDL Direct 55 mg/dL; Triglycerides 314 mg/dL (<150)
[2022-10-19 13:42] LABS: LDL Cholesterol Direct 131 mg/dL
[2022-10-19 14:03] LABS: Thyroid Stimulating Hormone 0.031 uIU/mL (0.465-4.680)
[2022-10-19 14:35] LABS: Free T4 Free Thyroxine 1.19 ng/mL (0.78-2.19)
== END 2022-10-19 12:44 | disposition home or self-care (01) ==
LOC: ANHLAB 12:44
PROVIDERS: Clinical Nurse Specialist; PCP Internal Medicine; Visit Provider Internal Medicine Endocrinology, Diabetes & Metabolism
DX: E03.9 Hypothyroidism, unspecified (principal); I10 Essential (primary) hypertension
CPT/HCPCS: 36415; 80061; 84439; 84443

== ENCOUNTER 2023-01-10 11:28 | Outpatient (CLI) | payer OTHER, SELFPAY ==
[2023-01-10 13:01] LABS: Hemoglobin A1C 7.1 % (<5.7)
[2023-01-10 13:15] LABS: Free T4 Free Thyroxine 1.03 ng/mL (0.78-2.19)
== END 2023-01-10 11:29 | disposition home or self-care (01) ==
LOC: ANHWCLAB 11:30
PROVIDERS: PCP Internal Medicine; Visit Provider Internal Medicine Endocrinology, Diabetes & Metabolism
DX: R73.03 Prediabetes (principal); E03.9 Hypothyroidism, unspecified
CPT/HCPCS: 36415; 83036; 84439; 84443

== ENCOUNTER 2024-08-22 10:23 | Outpatient (CLI) | payer OTHER, SELFPAY ==
[2024-08-22 10:50] LABS: Basophils Absolute Auto 0.1 K/mm3 (0.0-0.1); Basophils Percent Auto 0.8 % (0.2-1.2); Eosinophils Absolute Auto 0.2 K/mm3 (0-0.3); Eosinophils Percent Auto 1.7 % (0-4.4); Hematocrit 52.7 % (37.0-47.0); Hemoglobin 16.6 g/dL (12.0-15.0); Immature Granulocyte Absolute 0.04 K/mm3 (0.00-0.031); Immature Granulocyte Percent A 0.4 % (0-0.5); Lymphocytes Absolute Auto 5.42 K/mm3 (0.9-3.2); Lymphocytes Percent Auto 49.7 % (18.3-44.2); Mean Corpuscular HGB Conc 31.5 g/dl (32-36); Mean Corpuscular Hemoglobin 30.6 pg (26-34); Mean Corpuscular Volume 97.1 fl (80-100); Mean Platelet Volume 10.7 fl (7.4-10.4); Monocytes Absolute Auto 0.5 K/mm3 (0.1-0.6); Monocytes Percent Auto 4.7 % (2.6-8.5); Neutrophils Absolute Auto 4.7 K/mm3 (1.3-6.7); Neutrophils Percent Auto 42.7 % (45.5-73.1); Platelet Count Result 284 k/mm3 (150-375); Red Blood Count 5.43 M/mm3 (4.2-5.4); White Blood Count 10.9 K/mm3 (4.5-10.0)
[2024-08-22 11:14] LABS: LDL Cholesterol Direct 231 mg/dL
[2024-08-22 11:15] LABS: Alanine Aminotransferase 37 U/L (6-35); Albumin Level 4.8 g/dL (3.5-5.1); Alkaline Phosphatase 88 U/L (38-126); Anion Gap 13 mmol/L (4-12); Aspartate Amino Transferase 46 U/L (14-36); Bilirubin,Total 0.9 mg/dL (0.2-1.3); Blood Urea Nitrogen 16 mg/dL (7-17); Calcium 9.1 mg/dL (8.4-10.2); Carbon Dioxide 25 mmol/L (22-30); Chloride 102 mmol/L (98-107); Estimated Glomerular Filt Rate 48; Glucose 127 mg/dL (65-110); HDL Direct 49 mg/dL; Potassium 4.2 mmol/L (3.4-5.0); Sodium 140 mmol/L (137-145); Triglycerides 329 mg/dL (<150)
[2024-08-22 11:16] LABS: Anisocytosis 1+; Platelet Estimate Adequate (Adequate); Tear Drop Cells 1+
[2024-08-22 11:17] LABS: Free T4 Free Thyroxine < 0.07 ng/dL (0.78-2.19); Schistocytes None Seen; Vitamin D 25 Hydroxy 14.4 ng/mL
[2024-08-22 11:49] LABS: Cholesterol 335 mg/dL (0-200)
[2024-08-22 11:58] LABS: Thyroid Stimulating Hormone > 100.000 uIU/mL (0.465-4.680)
[2024-08-22 12:22] LABS: Creatinine Urine 115.2 mg/dL
[2024-08-22 12:26] LABS: MALB Creatinine Ratio 6.7 mg/g (0-30); Microalbumin Urine Random 7.7 mg/L (0-16.7)
[2024-08-22 12:38] LABS: Hemoglobin A1C 6.7 % (<5.7)
== END 2024-08-22 10:24 | disposition home or self-care (01) ==
LOC: ANHLAB 10:25
PROVIDERS: PCP Internal Medicine; Visit Provider Clinical Nurse Specialist
DX: E07.9 Disorder of thyroid, unspecified (principal); E11.65 Type 2 diabetes mellitus with hyperglycemia; D72.829 Elevated white blood cell count, unspecified; E55.9 Vitamin D deficiency, unspecified; I10 Essential (primary) hypertension; E78.2 Mixed hyperlipidemia; Z13.228 Encounter for screening for other metabolic disorders
CPT/HCPCS: 36415; 80053; 80061; 82043; 82306; 83036; 84439; 84443; 85025

== ENCOUNTER 2024-10-11 09:59 | Outpatient (CLI) | payer OTHER, SELFPAY ==
[2024-10-11 10:43] LABS: Alanine Aminotransferase 27 U/L (6-35); Albumin Level 4.5 g/dL (3.5-5.1); Alkaline Phosphatase 81 U/L (38-126); Anion Gap 12 mmol/L (4-12); Aspartate Amino Transferase 29 U/L (14-36); Bilirubin,Total 0.6 mg/dL (0.2-1.3); Blood Urea Nitrogen 11 mg/dL (7-17); Calcium 9.6 mg/dL (8.4-10.2); Carbon Dioxide 26 mmol/L (22-30); Chloride 101 mmol/L (98-107); Cholesterol 232 mg/dL (0-200); Estimated Glomerular Filt Rate 55; Glucose 110 mg/dL (65-110); HDL Direct 47 mg/dL; Potassium 4.2 mmol/L (3.4-5.0); Sodium 139 mmol/L (137-145); Triglycerides 288 mg/dL (<150)
[2024-10-11 10:54] LABS: LDL Cholesterol Direct 120 mg/dL
[2024-10-11 11:06] LABS: Basophils Absolute Auto 0.1 K/mm3 (0.0-0.1); Basophils Percent Auto 0.9 % (0.2-1.2); Eosinophils Absolute Auto 0.2 K/mm3 (0-0.3); Eosinophils Percent Auto 2.5 % (0-4.4); Hematocrit 50.1 % (37.0-47.0); Hemoglobin 15.9 g/dL (12.0-15.0); Immature Granulocyte Absolute 0.03 K/mm3 (0.00-0.031); Immature Granulocyte Percent A 0.4 % (0-0.5); Lymphocytes Absolute Auto 3.99 K/mm3 (0.9-3.2); Lymphocytes Percent Auto 47.1 % (18.3-44.2); Mean Corpuscular HGB Conc 31.7 g/dl (32-36); Mean Corpuscular Hemoglobin 30.8 pg (26-34); Mean Corpuscular Volume 96.9 fl (80-100); Monocytes Absolute Auto 0.5 K/mm3 (0.1-0.6); Monocytes Percent Auto 6.4 % (2.6-8.5); Neutrophils Absolute Auto 3.6 K/mm3 (1.3-6.7); Neutrophils Percent Auto 42.7 % (45.5-73.1); Platelet Count Result 252 k/mm3 (150-375); Red Blood Count 5.17 M/mm3 (4.2-5.4); Red Cell Distribution Width 13.4 % (11.5-14.5); White Blood Count 8.5 K/mm3 (4.5-10.0)
[2024-10-11 11:27] LABS: Free T4 Free Thyroxine 1.12 ng/dL (0.78-2.19)
== END 2024-10-11 10:00 | disposition home or self-care (01) ==
LOC: ANHLAB 10:00
PROVIDERS: PCP Internal Medicine; Visit Provider Clinical Nurse Specialist
DX: E03.9 Hypothyroidism, unspecified (principal); E11.65 Type 2 diabetes mellitus with hyperglycemia; E78.2 Mixed hyperlipidemia; D72.829 Elevated white blood cell count, unspecified
CPT/HCPCS: 36415; 80053; 80061; 84439; 84443; 85025

== ENCOUNTER 2025-01-24 13:04 | Outpatient (CLI) | payer OTHER, SELFPAY ==
[2025-01-24 14:36] LABS: Hemoglobin A1C. 6.8 % (<5.7)
== END 2025-01-24 13:05 | disposition home or self-care (01) ==
LOC: ANHLAB 13:06
PROVIDERS: PCP Internal Medicine; Visit Provider Internal Medicine Endocrinology, Diabetes & Metabolism
DX: E11.65 Type 2 diabetes mellitus with hyperglycemia (principal)
CPT/HCPCS: 36415; 83036

== ENCOUNTER 2025-05-26 10:39 | Outpatient (CLI) | payer OTHER, SELFPAY ==
--- NOTE | ~2025-05-26 | US_ITS ---
Clinical history:History of fourth and tumor status post removal in 2019. EXAM:Ultrasound soft tissue head and neck TECHNIQUE:Multiple static grayscale images and color Doppler images were obtained of the soft tissues of the neck in the areas of concern. Comparisons:None available FINDINGS: There is an indeterminate 2.6 x 1.7 x 2.2 cm heterogeneous mass along the left lateral face in an area of concern. There is internal color Doppler flow. There is an indeterminate 1.9 x 1.4 x 1.0 cm heterogeneous mass vascularity. The findings in the area of palpable concern along the right lateral face. IMPRESSION: 1.There is an indeterminate 2.6 x 1.7 x 2.2 cm heterogeneous mass along the left lateral face in an area of concern. There is internal color Doppler flow. A CT of the soft tissues of the neck with contrast is recommended. 2. There is an indeterminate 1.9 x 1.4 x 1.0 cm heterogeneous mass vascularity. The findings in the area of palpable concern along the right lateral face. A CT of the soft tissues of the neck with contrast is recommended. Reviewed, dictated and finalized at location Q. IMPRESSION: 1.There is an indeterminate 2.6 x 1.7 x 2.2 cm heterogeneous mass along the lef t lateral face in an area of concern. There is internal color Doppler flow. A C T of the soft tissues of the neck with contrast is recommended. 2. There is an indeterminate 1.9 x 1.4 x 1.0 cm heterogeneous mass vascularity. The findings in the area of palpable concern along the right lateral face. A C T of the soft tissues of the neck with contrast is recommended.
== END 2025-05-26 10:40 | disposition home or self-care (01) ==
PROVIDERS: PCP Internal Medicine; Visit Provider Internal Medicine Endocrinology, Diabetes & Metabolism
DX: R22.1 Localized swelling, mass and lump, neck (principal)
CPT/HCPCS: 76536

== ENCOUNTER 2025-06-16 11:09 | Outpatient (CLI) | payer OTHER, SELFPAY ==
[2025-06-16 11:52] LABS: Cholesterol 184 mg/dL (0-200); HDL Direct 46 mg/dL; Triglycerides 200 mg/dL (<150)
[2025-06-16 11:56] LABS: Hemoglobin A1C 7.2 % (<5.7)
[2025-06-16 12:28] LABS: Thyroid Stimulating Hormone 2.150 uIU/mL (0.465-4.680)
[2025-06-16 12:47] LABS: Vitamin B12 232.0 pg/mL (239-931)
== END 2025-06-16 11:10 | disposition home or self-care (01) ==
LOC: ANHLAB 11:11
PROVIDERS: PCP Internal Medicine; Visit Provider Internal Medicine Endocrinology, Diabetes & Metabolism
DX: E03.9 Hypothyroidism, unspecified (principal); E78.2 Mixed hyperlipidemia; E55.9 Vitamin D deficiency, unspecified
CPT/HCPCS: 36415; 80061; 82306; 82607; 83036; 84443

== ENCOUNTER 2025-06-19 08:01 | Outpatient (CLI) | payer OTHER, SELFPAY ==
--- NOTE | ~2025-06-19 | MM_ITS ---
EXAMINATION: screening [facility] BI w quirino INDICATION: Asymptomatic, referred for screening mammogram COMPARISON: 10/05/2022 through 05/07/2020 TECHNIQUE: Digital Breast Tomosynthesis CC, MLO views of Both breasts were obtained with computer-aided detection to assist in interpretation of the study. FINDINGS: There are scattered areas of fibroglandular density. There is a focal asymmetry in the superior lateral right breast at anterior third. Elsewhere, there are no mammographic features of malignancy. IMPRESSION: 1. Right breast Focal asymmetry. 2. No evidence of malignancy in the Left breast. RECOMMENDATION: Right breast Diagnostic mammogram with true lateral, appropriate spot compression views and an ultrasound if needed. BI-RADS Category 0: Incomplete: Needs additional imaging evaluation. Reviewed, dictated and finalized at location B. MATH TUTOR IMPRESSION: 1. Right breast Focal asymmetry. 2. No evidence of malignancy in the Left breast. RECOMMENDATION: Right breast Diagnostic mammogram with true lateral, appropriate spot compressi on views and an ultrasound if needed. BI-RADS Category 0: Incomplete: Needs additional imaging evaluation.
== END 2025-06-19 08:02 | disposition home or self-care (01) ==
LOC: ANHFOHIMG 08:03
PROVIDERS: PCP Internal Medicine; Visit Provider Clinical Nurse Specialist
DX: Z12.31 Encounter for screening mammogram for malignant neoplasm of breast (principal); R92.8 Other abnormal and inconclusive findings on diagnostic imaging of breast
CPT/HCPCS: 77063; 77067

== ENCOUNTER 2025-07-30 07:42 | Outpatient (CLI) | payer OTHER, SELFPAY ==
--- NOTE | ~2025-07-30 | CT_ITS ---
EXAMINATION: CT soft tissue neck w con DATE: 07/30/2025 08:13 INDICATION: Localized swelling, mass and lump, neck. TECHNIQUE: Computed tomography (CT) of the neck was performed with 75 mL Omnipaque-350 intravenous contrast. Automated exposure control and iterative reconstruction technique were employed. The dose-length product was 557.34 mGy-cm. COMPARISON: Neck CT 07/09/2020 FINDINGS: In the right parotid gland, there is a 1.7 x 1.3 cm mass. In the left parotid gland, there is a 2.4 x 2.1 cm mass. There are no pathologically enlarged lymph nodes. There are calcifications in the palatine tonsils. There is mild cervical spondylosis. IMPRESSION: 1. Bilateral parotid masses with interval increase in size. The differential diagnosis includes benign mixed tumor, Warthin tumor, and less likely lymphoma. Reviewed, dictated and finalized at location E. MENTAL METAL FABRICATOR APPRENTICE IMPRESSION: 1. Bilateral parotid masses with interval increase in size. The differential di agnosis includes benign mixed tumor, Warthin tumor, and less likely lymphoma.
[2025-07-30 08:07] LABS: Estimated Glomerular Filt Rate 53
== END 2025-07-30 07:43 | disposition home or self-care (01) ==
PROVIDERS: PCP Internal Medicine; Visit Provider Internal Medicine Endocrinology, Diabetes & Metabolism
DX: R22.1 Localized swelling, mass and lump, neck (principal)
CPT/HCPCS: 70491; Q9967